=== PATIENT | male | born 1960 | race Caucasian/White ===

== ENCOUNTER → 2023-10-09 16:00 | Outpatient (REF) | payer OTHER, SELFPAY | LOC: RAD 16:00 | PROVIDERS: ATTENDING PHYSICIAN Family Medicine | DX: N50.89 Other specified disorders of the male genital organs (principal) | CPT/HCPCS: 76870; 93976 ==

== ENCOUNTER → 2023-12-04 13:07 | Outpatient (REF) | payer OTHER, SELFPAY | LOC: HWRAD 13:07 | PROVIDERS: ATTENDING PHYSICIAN Surgery; FAMILY PHYSICIAN Family Medicine | DX: K40.90 Unilateral inguinal hernia, without obstruction or gangrene, not specified as recurrent (principal) | CPT/HCPCS: 74177; Q9967 ==

== ENCOUNTER → 2024-06-13 12:56 | Outpatient (REF) | payer OTHER, SELFPAY | LOC: RAD 12:56 | PROVIDERS: ATTENDING PHYSICIAN Physician Assistant | DX: R22.31 Localized swelling, mass and lump, right upper limb (principal) | CPT/HCPCS: 73140 ==